=== PATIENT | female | born 1995 | race Caucasian/White ===

== ENCOUNTER 2017-08-21 07:54 | Inpatient (IN) | payer OTHER ==
[~2017-08-21] VITALS: Ht 162.6 cm; Wt 63.5 kg
[2017-08-23] MEDS ORDERED: PERCOCET 2.5-31 EACH PO (19:20)
[2017-08-23] MEDS ORDERED: SURFAK240 M1 PO (19:20)
== END 2017-08-23 19:42 | DRG 743 ==
LOC: SURH 07:54 → O/R 09:09 → OB/GYN 09:09
PROVIDERS: Specialist
PROC: 0UT10ZZ Resection of Left Ovary, Open Approach (ICD-10-PCS; principal; 2017-08-21 08:30)
DX: D27.1 Benign neoplasm of left ovary (principal)